=== PATIENT | male | born 1975 | race African-American/Black ===

== ENCOUNTER 2018-01-06 20:57 | Emergency (ER) | payer SELFPAY ==
[~2018-01-06] VITALS: Ht 170.2 cm; Wt 82.0 kg
[~2018-01-06 20:57] MED LIST: ALBU6.7H INH
[2018-01-06] MEDS ORDERED: BACITRACIN ZINC OINT UDPKT TOP ONE (22:30)
[2018-01-06] MEDS ORDERED: IBUPROFEN 600MG TABLET PO ONE (22:30)
[2018-01-06] MEDS ORDERED: TETANUS, DIPHTHERIA, PERTUSSIS VAC/PF 0.5ML (>7YR OLD) IM ONE (22:30)
[2018-01-06] MEDS ORDERED: LIDOCAINE HCL/PF 1% 10 MG/ML 5ML VIAL IJ ONE (22:30)
[2018-01-07 01:05] VITALS: BP 162/102
== END 2018-01-07 01:22 | disposition home or self-care (01) ==
LOC: ER 20:57
DX: S81.811A Laceration without foreign body, right lower leg, initial encounter (principal); J45.909 Unspecified asthma, uncomplicated; Z79.899 Other long term (current) drug therapy; W01.0XXA Fall on same level from slipping, tripping and stumbling without subsequent striking against object, initial encounter; Y93.89 Activity, other specified; Y92.89 Other specified places as the place of occurrence of the external cause; Y99.8 Other external cause status
CPT/HCPCS: 12002; 90471; 90715; 99283; J3490; X7700; Z7610

== ENCOUNTER 2022-05-30 18:01 | Emergency (ER) | payer OTHER ==
[~2022-05-30] VITALS: Ht 182.9 cm; Wt 82.0 kg
[~2022-05-30 18:01] MED LIST changes: -ALBU6.7H INH; +ALBU6.7H15 INH
[2022-05-30 18:08] VITALS: BP 171/111
[2022-05-30] MEDS ORDERED: ACETAMINOPHEN 325MG TABLET PO ONE (18:30)
[2022-05-30] MEDS ORDERED: LISI10TA26 MT (18:40)
== END 2022-05-30 18:58 ==
LOC: ER 18:01
DX: M79.662 Pain in left lower leg (principal); J45.909 Unspecified asthma, uncomplicated; F17.210 Nicotine dependence, cigarettes, uncomplicated; Y93.67 Activity, basketball
CPT/HCPCS: 93005; 99283